=== PATIENT | female | born 1925 | race Caucasian/White ===

== ENCOUNTER → 2017-01-26 | Outpatient (CLI) | payer OTHER, BC | LOC: BMCIMAGING 14:55 | PROVIDERS: ATTEND Orthopaedic Surgery | DX: M25.552 Pain in left hip (principal); M47.9 Spondylosis, unspecified ==

== ENCOUNTER → 2017-07-01 | Outpatient (CLI) | payer OTHER, BC | LOC: BMCIMAGING 13:17 | PROVIDERS: ATTEND Internal Medicine | DX: Z13.820 Encounter for screening for osteoporosis (principal); M81.0 Age-related osteoporosis without current pathological fracture; R29.890 Loss of height; Z78.0 Asymptomatic menopausal state; Z85.3 Personal history of malignant neoplasm of breast ==